=== PATIENT | male | born 1990 ===

== ENCOUNTER 2020-08-15 10:58 | Emergency (ER) | payer SELFPAY ==
[2020-08-15] MEDS ORDERED: Lidocaine 2% Viscous Solution 15 ML Cup PO ONE (12:01)
[2020-08-15] MEDS ORDERED: Benzocaine 20% Topical Spray UD MUCMEM ONE (12:01)
--- NOTE | 2020-08-15 12:01 | EDM.PDOC ---
ED HPI GENERAL MEDICAL PROBLEM - General Chief Complaint: General Stated Complaint: ABCESS TOOTH Time Seen by Provider: 08/15/20 10:59 Source of Information: Reports: Patient, Family History Limitations: Reports: Language Barrier - History of Present Illness INITIAL COMMENTS - FREE TEXT/NARRATIVE: HISTORY AND PHYSICAL: History of present illness: Patient is a 29-year-old male who presents the emergency room today with concern of dental pain over the past 2 to 3 days. Patient is primarily speaking but does have a friend with him for translation. DFMSim buccaro was offered but patient declines at this time requesting his friend to translate. Patient has been having dental pain over the past 2 to 3 days on the bottom back of his tooth as well as the front left-sided area. Patient has taken some [id number] Tylenol with mild relief of symptoms. Patient has not seen a dentist and does not have any appointment scheduled. Patient has been able to eat and drink but just has to chew carefully to avoid the teeth that are hurting. Patient denies fever, chills, chest pain, shortness of breath, or cough. Denies headache, neck stiff ness, change in vision, syncope, or near syncope. Denies nausea, vomiting, abdominal pain, diarrhea, constipation, or dysuria. Has not noted any blood in urine or stool. Patient has been eating and drinking appropriately. Review of systems: As per history of present illness and below otherwise all systems reviewed and negative. Past medical history: As per history of present illness and as reviewed below otherwise noncontributory. Surgical history: As per history of present illness and as reviewed below otherwise noncontributory. Social history: See social history for further information Family history: As per history of present illness and as reviewed below otherwise noncontributory. Physical exam: General: Patient is alert, oriented, and in no acute distress. Patient sitting comfortably on exam table. Vitals stable and reviewed by me. HEENT: The tooth #32 is starting to grow in to the gumline with surrounding edema of the gumline. This tooth is just at the entrance of the gumline and does appear to be up against tooth #31. This tooth is painful to palpation. Patient also has a edema of the gumline around the base of tooth #21 without obvious drainable abscess at this time. There is some spontaneous bleeding of the gumline that is mild without pus. Otherwise, atraumatic, normocephalic, pupils equal and reactive bilaterally, negative for conjunctival pallor or scleral icterus, mucous membranes moist, TMs normal bilaterally, throat clear, neck supple, nontender, trachea midline. No drooling or trismus noted. No meningeal signs. No hot potato voice noted. Lungs: Clear to auscultation, breath sounds equal bilaterally, chest nontender. Heart: S1S2, regular rate and rhythm without overt murmur Abdomen: Soft, nondistended, nontender. Negative for masses or hepatosplenomegaly. Negative for costovertebral tenderness. Pelvis: Stable nontender. Genitourinary: Deferred. Rectal: Deferred. Skin: Intact, warm, dry. No lesions or rashes noted. Extremities: Atraumatic, negative for cords or calf pain. Neurovascular unremarkable. Neuro: Awake, alert, oriented. Cranial nerves II through XII unremarkable. Cerebellum unremarkable. Motor and sensory unremarkable throughout. Exam nonf ocal. Notes: Signs and symptoms that were prompt return to the ED thoroughly discussed with patient. Discussed importance for follow-up with a dentist. Voices understanding and is agreeable to plan of care. Denies any further questions or concerns at this time. Diagnostics: None Therapeutics: Dental balls Prescription: Augmentin, diclofenac Impression: Tooth eruption pain, tooth #32 Dental infection Plan: 1. Please take medication as prescribed. 2. Tylenol as directed and as needed for pain management. Take diclofenac as prescribed for pain as directed. Do not take additional NSAIDs such as ibuprofen, aspirin, Aleve, or naproxen along with diclofenac. 3. "Tooth Balls" have been given to you; apply along the gumline every 2-3 hours as needed. Do not swallow these; external use only. 4. Follow-up with a dentist for definitive care. Return to the ED as needed and as discussed. Definitive disposition and diagnosis as appropriate pending reevaluation and review of above. - Related Data Allergies Allergy/AdvReac Type Severity Reaction Status Date / Time No Known Allergies Allergy Verified 08/15/20 12:03 Home Meds: Home Meds Amoxicillin/Potassium Clav [Augmentin 875-125 Tablet] 1 each PO BID 7 Days #14 tablet 08/15/20 [Rx] Diclofenac Sodium [Voltaren] 75 mg PO BIDMEALS PRN #15 tab.cr 08/15/20 [Rx] ED ROS GENERAL - Review of Systems Review Of Systems: Comprehensive ROS is negative, except as noted in HPI. ED EXAM, GENERAL - Physical Exam Exam: See Below (see dictation) Course - Vital Signs Last Recorded V/S: Last Vital Signs Temp 97.8 F 08/15/20 11:49 Pulse 70 08/15/20 11:49 Resp BP 114/73 08/15/20 11:49 Pulse Ox 98 08/15/20 11:49 - Orders/Labs/Meds Meds: Medications Discontinued Medications Generic Name Dose Route Start Last Admin Trade Name Freq PRN Reason Stop Dose Admin Benzocaine 2 each 08/15/20 12:01 Benzocaine 20% Topical Erin Ud MUCMEM 08/15/20 12:02 ONETIME ONE Lidocaine HCl 15 ml 08/15/20 12:01 Lidocaine 2% Viscous Solution 15 Ml Cup PO 08/15/20 12:02 ONETIME ONE Departure - Departure Time of Disposition: 12:01 Disposition: Home, Self-Care 01 Clinical Impression: Dental infection, Tooth eruption disturbance - Discharge Information Prescriptions: Amoxicillin/Potassium Clav [Augmentin 875-125 Tablet] 1 each PO BID 7 Days #14 tablet Diclofenac Sodium [Voltaren] 75 mg PO BIDMEALS PRN #15 tab.cr PRN Reason: Pain Instructions: Preventive Dental Care, Adult Referrals: PCP,None [Primary Care Provider] - Forms: ED Department Discharge Additional Instructions: The following information is given to patients seen in the emergency department who are being discharged to home. This information is to outline your options for follow-up care. We provide all patients seen in our emergency department with a follow-up referral. The need for follow-up, as well as the timing and circumstances, are variable depending upon the specifics of your emergency department visit. If you don't have a primary care physician on staff, we will provide you with a referral. We always advise you to contact your personal physician following an emergency department visit to inform them of the circumstance of the visit and for follow-up with them and/or the need for any referrals to a consulting specialist. The emergency department will also refer you to a specialist when appropriate. This referral assures that you have the opportunity for follow-up care with a specialist. All of these measure are taken in an effort to provide you with optimal care, which includes your follow-up. Under all circumstances we always encourage you to contact your private physician who remains a resource for coordinating your care. When calling for follow-up care, please make the office aware that this follow-up is from your recent emergency room visit. If for any reason you are refused follow-up, please contact the [facility] Emergency Department at and asked to speak to the emergency department charge nurse. [facility] [address] [place] [id number] [facility] [address] [place] [id number] 1. Please take medication as prescribed. 2. Tylenol as directed and as needed for pain management. Take diclofenac as prescribed for pain as directed. Do not take additional NSAIDs such as ibuprofen, aspirin, Aleve, or naproxen along with diclofenac. 3. "Tooth Balls" have been given to you; apply along the gumline every 2-3 hours as needed. Do not swallow these; external use only. 4. Follow-up with a dentist for definitive care. Return to the ED as needed and as discussed. Sepsis Event Note (ED) - Focused Exam Vital Signs: Vital Signs Temp Pulse BP Pulse Ox 08/15/20 11:49 97.8 F 70 114/73 98
== END 2020-08-15 12:25 | disposition home or self-care (01) ==
LOC: MW.ED 10:58
DX: K04.7 Periapical abscess without sinus (principal); K00.6 Disturbances in tooth eruption
CPT/HCPCS: 99282; A9270; 99283